=== PATIENT | female | born 1980 | race Caucasian/White ===

== ENCOUNTER 2025-08-13 15:25 | Inpatient (IN) ==
--- NOTE | 2025-08-13 16:28 | Emergency Department Note ---
History of Present Illness General Chief complaint: Referred by Doctor Stated complaint: FEVER, ABD PAIN, ABNORMAL LABS Time Seen by Provider: 08/13/25 16:16 History of Present Illness Provider complaint: Fever nausea vomiting Maximum Pain Intensity: 0 44-year-old female with history of colon cancer on chemotherapy through [facility] oncology Dr. Horowitz presents emergency department for fever nausea vomiting. Patient reports she has been having fever increased nausea and vomiting. No hematemesis coffee-ground emesis or bilious vomiting. Patient reports abdominal pain. She reports that he did blood work at Dr. Horowitz's office and her blood work was off so she was referred to the emergency department. Patient also states that her oncologist wanted her to give a stool sample. Patient reports no chest pain or difficulty breathing. Home Medications Medication Instructions Recorded Confirmed Type clindamycin phosphate 1 % topical 1 applic topical DIRECTED PRN 03/12/25 08/13/25 History gel NEEDED duloxetine 60 mg capsule,delayed 60 mg PO QAM 03/12/25 08/13/25 History release gabapentin 100 mg capsule 200 mg PO BID 03/12/25 08/13/25 History linagliptin 5 mg tablet (Tradjenta) 5 mg PO QAM 03/12/25 08/13/25 History losartan 100 mg tablet 100 mg PO QAM 03/12/25 08/13/25 History lurasidone 40 mg tablet (Latuda) 40 mg PO QDD 03/12/25 08/13/25 History pioglitazone 30 mg tablet (Actos) 30 mg PO QAM 03/12/25 08/13/25 History potassium chloride 20 mEq 20 meq PO BID 03/12/25 08/13/25 History tablet,extended release(part/cryst) ondansetron 4 mg disintegrating 4 mg PO BID PRN nausea and 03/19/25 08/13/25 Rx tablet vomiting #20 tabs acetaminophen 500 mg tablet 500 mg PO Q6H PRN Pain 03/28/25 08/13/25 History fluticasone propionate 50 2 spray intranasal BID PRN 03/28/25 08/13/25 History mcg/actuation nasal allergies spray,suspension pantoprazole 40 mg tablet,delayed 40 mg PO QAM 03/28/25 08/13/25 History release metformin 500 mg tablet 500 mg PO BID 05/15/25 08/13/25 History tizanidine 2 mg tablet 2 mg PO Q8H PRN Spasms 05/15/25 08/13/25 History Magic Swizzle 15 ml mucous membrane TID PRN 08/13/25 08/13/25 History NEEDED PER PT atorvastatin 20 mg tablet 20 mg PO DAILY 08/13/25 08/13/25 History buspirone 30 mg tablet 30 mg PO BID 08/13/25 08/13/25 History fluconazole 100 mg tablet 100 mg PO DAILY 08/13/25 08/13/25 History fluorouracil 5 gram/100 mL 5 g IV .[id number] 08/13/25 08/13/25 History intravenous solution lidocaine-prilocaine 2.5 %-2.5 % 1 applic topical DIRECTED PRN 08/13/25 08/13/25 History topical cream PORT ACCESS magnesium glycinate 100 mg (as 100 mg PO BID 08/13/25 08/13/25 History glycinate) tablet ceptgiyv-ojmo-bjep 8 mg-folic 400 1 tab PO DAILY 08/13/25 08/13/25 History mcg-K 50 mcg-lutein 300 mcg tablet (Centrum Silver Women) nystatin-triamcinolone 100,000 1 applic topical BID PRN NEEDED 08/13/25 08/13/25 History unit/g-0.1 % topical cream omeprazole 20 mg capsule,delayed 20 mg PO BID 08/13/25 08/13/25 History release ondansetron HCl 8 mg tablet 8 mg PO Q8H PRN NAUSEA/VOMITING 08/13/25 08/13/25 History Allergies Allergy/AdvReac Type Severity Reaction Status Date / Time lisinopril AdvReac Intermediate Cough Verified 08/13/25 18:19 Past Med/Surg History Problem List (Updated 08/13/25 @ 20:08 by Himanshu Arciniega MD) Colitis Hypomagnesemia (Acute) Hypokalemia (Acute) Febrile neutropenia Neoplasm of transverse colon Medical History (Updated 08/13/25 @ 20:08 by Himanshu Arciniega MD) Malnutrition of moderate degree History of biliary stent insertion History of recent hospitalization [facility] 05/06-05/10/25; s/p subtotal colectomy with ileo-descending anastomosis Weight loss, unintentional 25lbs over past few months per 04/2025 hospital admission Obesity Colon cancer recent dx; s/p s/p subtotal colectomy with ileo-descending anastomosis 05/06 History of COVID-2023: mild symptoms - no hospitalization. resolved. ADD (attention deficit disorder) On anticoagulant therapy Lovenox daily s/p colon resection 05/13/25 to stop 06/03/25 Diabetes mellitus, type 2 NIDDM Kidney stone ?? possible incidental finding on u/s -- no current issues. Osteoarthritis Fibromyalgia History of endometriosis Depression with anxiety Pancreatic cyst GERD (gastroesophageal reflux disease) Hx of sepsis (02/2025) treated at [facility] Sleep apnea non compliant with cpap Biliary drain displacement (03/14/25) had lap talha at [facility] 02/22/25- presented to [facility] - had biloma- had drain placed on 03/14/25 and removed after discharge from [facility] Hypothyroidism Dyslipidemia Hypertension Bipolar disorder ADHD Surgical History History of laparoscopy (1996) for the endometriosis History of colon resection (05/06/25) [facility] : laparoscopic hand assisted subtotal colectomy with ileo- descending anastamosis Hx of colonoscopy colonoscopy with colon stent Hx of endoscopic retrograde cholangiopancreatography (03/14/25) S/P cholecystectomy (02/22/25) [facility], operated by [facility] Family History Other No family history of adverse response to anesthesia Social History Smoking Status: Current every day smoker Tobacco Type: Cigarettes Cigarettes Per Day: 5-10 cigs per day (advised on policy); Second Hand Exposure: No; Do You Dip or Chew Tobacco: No; Hx Alcohol Use: Yes Alcohol type: beer Hx Substance Use: Yes Last Used Substance Other:: 02/17/25 (no routine use, has not used since) Preferred Language: Beninese Communication Ability: Effective Rn Bsn Required: No Beliefs That Will Affect Care: None Current Living Situation: Family Current Living Situation Comment: lives with children Feels Safe at Home: Yes Assistive Devices: Glasses Physical Exam Vital Signs Vital Signs - 24 hr 08/13/25 15:39 08/13/25 17:00 08/13/25 17:06 Temperature 36.5 C Temperature Source Temporal Artery Scan Pulse Rate 116 H 104 H Pulse Rate [Finger] 103 H Respiratory Rate 18 20 Respiratory Effort / Characteristics Non-Labored Spontaneous Respiratory Depth Normal Respiratory Pattern Regular Blood Pressure 120/81 Blood Pressure [Right Arm] 114/70 Blood Pressure Mean 94 Blood Pressure Mean [Right Arm] 84 Pulse Oximetry 98 98 Oxygen Delivery Method Room Air Room Air Sepsis Recent Fever Within 48 Hours No Sepsis New/Unexplained Change in Mental Status N/A Sepsis Action Taken by Nursing No Action Required 08/13/25 19:00 Temperature Temperature Source Pulse Rate Pulse Rate [Finger] 99 H Respiratory Rate 18 Respiratory Effort / Characteristics Respiratory Depth Respiratory Pattern Blood Pressure Blood Pressure [Right Arm] 105/74 Blood Pressure Mean Blood Pressure Mean [Right Arm] 84 Pulse Oximetry 97 Oxygen Delivery Method Room Air Sepsis Recent Fever Within 48 Hours Sepsis New/Unexplained Change in Mental Status Sepsis Action Taken by Nursing Physical Exam GENERAL: oriented to person, place, and time. appears well-developed and well- nourished. She does not appear distressed. HENT: Exam performed. -Head: Normocephalic and atraumatic. -Right Ear: External ear normal. No mastoid erythema -Left Ear: External ear normal. No mastoid erythema -Mouth/Throat: The oropharynx is clear and moist. No trismus in the jaw. No dental abscesses or uvula swelling. No oropharyngeal exudate or tonsillar abscesses. EYES: Conjunctivae and EOM are normal.Right eye exhibits no discharge. Left eye exhibits no discharge. No scleral icterus. NECK: Normal range of motion. Neck supple. No JVD present. No tracheal deviation and normal range of motion present. CV: Tachycardic rate, regular rhythm, normal heart sounds and intact distal pulses. There is no peripheral edema. Palpable radial pulses bue. PULM/CHEST: Effort normal and breath sounds normal. No respiratory distress. No stridor. no wheezes.no rales. -Chest Wall: no tenderness to palpation ABD: The abdomen is soft. Bowel sounds are normal. no distension. No mass is present. There is no tenderness. There is no rebound, no guarding, no Flores's sign and no tenderness at McBurney's point. Rovsig negative MUSC/SKEL: Normal range of motion. There is no peripheral edema, tenderness or deformity. NEURO: Motor and sensation grossly intact. SKIN: Skin is warm and dry. not diaphoretic. PSYCH: normal mood and affect. Behavior is normal. Judgment and thought content normal. Course Course 1616: The patient was evaluated in room B7. A complete history and physical exam was performed Cardiac monitoring: An order was placed for continuous cardiac monitoring. The monitor shows a rate of 80 with sinus rhythm interpreted by 1800: Vital signs stable. Labs show white blood cell count 3.82 hemoglobin 11.5 neutrophil 0.81 INR 1.2 sodium 130 potassium 2.8 magnesium 0.9. Imaging is unremarkable. [facility] Electrolyte repletion began in the emergency department. Administered Medications Magnesium Sulfate/Dextrose (Magnesium Sulfate / D5w) 1 gm in 100 mls @ 50 mls/hr IV Q2H FRANKIE Stop: 08/13/25 23:29 Last Admin: 08/13/25 19:53 Dose: 50 mls/hr Potassium Chloride (K Cornelius / Wtr) 10 meq in 100 mls @ 100 mls/hr IV Q1H FRANKIE Stop: 08/13/25 22:29 Last Admin: 08/13/25 19:44 Dose: 100 mls/hr Documented By: Infusion: 08/13/25 19:41 Dose: Infused Documented By: Admin: 08/13/25 18:41 Dose: 100 mls/hr Documented By: KATHRYN Discontinued Medications Sodium Chloride (Nss) 1,000 mls @ 999 mls/hr IV .Q1H1M STA Stop: 08/13/25 16:52 Last Infusion: 08/13/25 18:14 Dose: Infused Documented By: Admin: 08/13/25 16:56 Dose: 999 mls/hr Documented By: KATHRYN Magnesium Sulfate/Dextrose (Magnesium Sulfate / D5w) 1 gm in 100 mls @ 100 mls/hr IV Q1H FRANKIE Stop: 08/13/25 19:15 Last Infusion: 08/13/25 19:45 Dose: Infused Documented By: Admin: 08/13/25 18:23 Dose: 100 mls/hr Documented By: Infusion: 08/13/25 18:23 Dose: Infused Documented By: Admin: 08/13/25 17:28 Dose: 100 mls/hr Documented By: KATHRYN Ioversol (Optiray 320 100ml) 92 ml IV ONCE ONE Stop: 08/13/25 16:51 Last Admin: 08/13/25 16:50 Dose: 92 ml Documented By: THELMA Medical Decision Making Laboratory Data Attestation: I reviewed the patient's lab results. 08/13/25 Unknown 08/13/25 Unknown Lab Results 08/13/25 08/13/25 08/13/25 Range/Units 16:30 16:34 Unknown WBC 3.82 L (4.8-10.8) K/ul RBC 4.05 L (4.20-5.40) M/uL Hgb 11.5 L (12.0-16.0) g/dl POC Hgb 11.9 L (12.0-16.0) g/dl Hct 33.9 L (37.0-47.0) % POC Hct 35 L (37-47) % MCV 83.7 (80.0-100.0) fL MCH 28.4 (25.0-34.0) pg MCHC 33.9 (32.0-36.0) g/dL RDW Std Deviation 43.6 (36.4-46.3) fL RDW Coeff of Adi 14.6 H (11.5-14.5) % Plt Count 173 (130-400) K/uL MPV 10.5 (9.4-12.4) fL Immature Gran % (Auto) 2.1 % Neut % (Auto) 21.2 % Lymph % (Auto) 44.8 % [place] % (Auto) 30.6 % Eos % (Auto) 0.8 % Baso % (Auto) 0.5 % Neut # (Auto) 0.81 L* (1.40-6.50) K/uL Lymph # (Auto) 1.71 (1.20-3.40) K/uL [place] # (Auto) 1.17 H (0.11-0.59) K/uL Eos # (Auto) 0.03 (0.00-0.50) K/uL Baso # (Auto) 0.02 (0.00-0.20) K/uL Immature Gran # (Auto) 0.08 (0.01-0.20) K/uL Absolute Nucleated RBC 0.02 (0.00-0.12) K/uL Nucleated RBC % (auto) 0.5 % PT 12.4 H (9.0-12.0) Seconds INR 1.2 H (0.9-1.1) APTT 27 (21-31) Seconds PTT Ratio 1.0 POC Sodium 130 L (135-144) mmol/L Sodium 130 L (136-145) mmol/L POC Potassium 2.8 L (3.3-5.0) mmol/L Potassium 2.8 L (3.5-5.1) mmol/L POC Chloride 94 L (101-112) mmol/L Chloride 95 L (98-107) mmol/L Carbon Dioxide 22 (21-32) mmol/L POC Total CO2 23 L (24-31) mmol/L Anion Gap 13 H (3-11) POC Anion Gap 16.0 (16-25) mmol/L POC BUN < 3 L (7-18) mg/dl BUN 3 L (6-23) mg/dl Creatinine 0.48 L (0.6-1.2) mg/dl POC Creatinine 0.4 L (0.6-1.3) mg/dl Est Cr Clr Drug Dosing 166.7 ml/min eGFR 118.96 BUN/Creatinine Ratio 6.3 L (10-20) Glucose 214 H (70-99(Fasting)) mg/dl POC Glucose (other) 227 H (70-99) mg/dl Lactate 1.4 (0.4-2.0) mmol/L Calcium 8.7 (8.6-10.3) mg/dl POC Ioniz Calcium Ata 1.11 L (1.12-1.32) mmol/l Phosphorus 2.8 (2.5-4.9) mg/dl Magnesium 0.9 L* (1.7-2.4) mg/dl Total Bilirubin 0.4 (0.2-1.0) mg/dl AST 13 (13-39) U/L ALT 14 (7-52) U/L Alkaline Phosphatase 117 H (34-104) U/L Total Protein 6.8 (6.0-8.3) gm/dl Albumin 3.4 (3.4-5.0) gm/dl Globulin 3.4 (2.5-4.0) gm/dl Albumin/Globulin Ratio 1.0 (0.9-2) Lipase 16 (11-82) U/L TSH 2.841 (0.300-4.500) uIu/ml HCG, Qual Negative (Negative) Urine Color Yellow Urine Appearance Clear (Clear) Urine pH 7.0 (4.5-7.5) Ur Specific Whitney 1.016 (1.000-1.030) Urine Protein Negative (Negative) Urine Glucose (UA) Negative (Negative) Urine Ketones Negative (Negative) Urine Blood Negative (Negative) Urine Nitrite Negative (Negative) Urine Bilirubin Negative (Negative) Urine Urobilinogen Negative (Negative) Ur Leukocyte Esterase Negative (Negative) Urine Comment Imaging Data Radiologist's Impression: Abdomen/Pelvis CT 08/13/25 15:53 Clinical History: Abdominal pain Technique: Axial computed tomography images were obtained of the abdomen and pelvis after the administration of intravenous contrast. Comparison is made to the prior CT dated 03/28/2025. Findings: The liver is overall of normal size, attenuation, and contour with no sign of cirrhosis or significant fatty infiltration. No liver mass lesion is seen. The portal vein is patent. The gallbladder has been removed. No bile duct dilatation is noted. The spleen is of normal size. No focal splenic lesion is evident. Again seen is a 1.3 cm septated cyst in the pancreatic tail. The pancreas otherwise appears normal with no sign of acute or chronic pancreatitis and no mass lesion noted. The pancreatic duct is of normal caliber. The adrenal glands appear unremarkable. No definite renal or proximal ureteral calculi are seen on this contrast-enhanced study. There is no hydronephrosis or perinephric stranding. No renal mass lesion is identified. The aorta is of normal caliber. No abdominal adenopathy is seen. There is prominence of the gastric wall that could be due to incomplete distention. There is no sign of small bowel obstruction. There has been interval resection of the previously seen transverse colon mass. There is apparent mild wall thickening of the ileum with adjacent mesenteric edema. No free intraperitoneal fluid or air is identified. No distal ureteral or bladder calculi are seen. The bladder is decompressed. The iliac arteries are of normal caliber. No pelvic adenopathy is noted. The lungs bases appear clear. Mild thoracolumbar degenerative disc disease is seen. There is bilateral hip osteoarthritis. No fracture is identified. No focal osseous lesion is seen Impression: 1. Apparent small bowel wall thickening, which may be due to infectious enteritis or inflammatory bowel disease 2. No definite change in a cystic lesion in the pancreatic tail, likely benign but indeterminate in nature 3. Prominence of the gastric wall that could be due to the decompressed state. Inflammatory gastritis or other pathology cannot be occluded ACT 112: Positive. There are findings on this exam that require communication between the performing entity and the patient following Patient Test Result Information Act ([place] ACT 112) guidelines. Electronically signed by Mina Bishop 08-13-2025 5:43 PM Chest X-Ray 08/13/25 16:23 Chest radiograph, one view History: Vomiting Comparison: None Findings: Single AP view of the chest performed. No focal consolidation or pleural effusion. No pneumothorax. Right chest wall port with catheter tip at the lowerPC. The cardiomediastinal silhouette is within normal limits. Normal pulmonary vascularity. No evidence for lymphadenopathy. No visualized bony or soft tissue abnormality. Impression: Normal chest radiograph Electronically signed by Silvano Bocanegra 08-13-2025 4:49 PM ECG Data Attestation: I personally reviewed and interpreted this ECG as follows: Rate (beats per minute): 106 Rhythm: + sinus tachycardia ECG Intervals/blocks: + Normal QRS, + Normal MN and + Normal QT-c ECG ST segments: + Normal ST segments MDM Narrative 1616: The patient was evaluated in room B7. A complete history and physical exam was performed Cardiac monitoring: An order was placed for continuous cardiac monitoring. The monitor shows a rate of 80 with sinus rhythm interpreted by 1800: Vital signs stable. Labs show white blood cell count 3.82 hemoglobin 11.5 neutrophil 0.81 INR 1.2 sodium 130 potassium 2.8 magnesium 0.9. Imaging is unremarkable. [facility] Electrolyte repletion began in the emergency department. Impression & Plan Hypokalemia, Hypomagnesemia Discharge Plan Visit Data Chief Complaint: Referred by Doctor Stated Complaint: FEVER, ABD PAIN, ABNORMAL LABS ED Provider: Himanshu Arciniega Discharge Problem: Hypokalemia, Hypomagnesemia Patient Disposition: Admitted As Inpatient Condition: Fair Forms Stand Alone Forms: My [facility] [employer] Prescriptions Prescriptions: No Action fluticasone propionate 50 mcg/actuation spray,suspension 2 spray INTRANASAL BID PRN (Reason: allergies) pantoprazole 40 mg tablet,delayed release (DR/EC) 40 mg PO QAM acetaminophen 500 mg Tablet 500 mg PO Q6H PRN (Reason: Pain) metformin 500 mg Tablet 500 mg PO BID tizanidine 2 mg Tablet 2 mg PO Q8H PRN (Reason: Spasms) fluconazole 100 mg Tablet 100 mg PO DAILY ondansetron HCl [Zofran] 8 mg Tablet 8 mg PO Q8H PRN (Reason: NAUSEA/VOMITING) lidocaine-prilocaine 2.5-2.5 % Cream 1 applic topical DIRECTED PRN (Reason: PORT ACCESS) Rx Instructions: apply to skin over mediport and cover 1 hr prior to accessing buspirone 30 mg tablet 30 mg PO BID omeprazole 20 mg Capsule,Delayed Release(Dr/Ec) 20 mg PO BID fluorouracil 5 gram/100 mL Solution 5 g IV .[id number] Rx Instructions: ADMINISTER 5,000 MG AT 3ML/HR OVER 46 HOURS IV Q 14 DAYS. magnesium glycinate 100 mg Tablet 100 mg PO BID Rx Instructions: NEW ORDER 08/13/25, NOT STARTED YET Centrum Silver Women 8 mg iron-400 mcg-50 mcg Tablet 1 tab PO DAILY Magic Swizzle 15 ml mucous membrane TID PRN (Reason: NEEDED PER PT) Rx Instructions: swish and spit TID atorvastatin 20 mg tablet 20 mg PO DAILY nystatin-triamcinolone [Mycolog II] 100,000-0.1 unit/g-% Cream 1 applic TOPICAL BID PRN (Reason: NEEDED) potassium chloride 20 mEq tablet,ER particles/crystals 20 meq PO BID clindamycin phosphate 1 % gel 1 applic TOPICAL DIRECTED PRN (Reason: NEEDED) Rx Instructions: PRN under breasts and groin gabapentin 100 mg capsule 200 mg PO BID pioglitazone [Actos] 30 mg tablet 30 mg PO QAM losartan 100 mg tablet 100 mg PO QAM lurasidone [Latuda] 40 mg tablet 40 mg PO QDD Rx Instructions: MUST BE TAKEN WITH AT LEAST 350 [employer] MEAL Tradjenta 5 mg tablet 5 mg PO QAM duloxetine 60 mg capsule,delayed release(DR/EC) 60 mg PO QAM ondansetron 4 mg tablet,disintegrating 4 mg PO BID PRN (Reason: nausea and vomiting) Qty: 20 0RF Referrals Referrals: Jermaine Mancilla MD [Primary Care Provider] -
[2025-08-13 16:33] LABS: Hematocrit (blood only) 33.9 % (37.0-47.0); Hemoglobin 11.5 g/dl (12.0-16.0); Mean Corpuscular Hemoglobin 28.4 pg (25.0-34.0); Mean Corpuscular Volume 83.7 fL (80.0-100.0); Platelet Count 173 K/uL (130-400); RDW Standard Deviation 43.6 fL (36.4-46.3); Red Blood Count 4.05 M/uL (4.20-5.40); White Blood Count 3.82 K/ul (4.8-10.8)
[2025-08-13 16:46] LABS: Pregnancy Test, Serum Negative (Negative)
[2025-08-13] MEDS: OPTIRAY 320 100ml IV ONE (16:50)
--- NOTE | 2025-08-13 16:51 | XRay Report ---
Chest radiograph, one view History: Vomiting Comparison: None Findings: Single AP view of the chest performed. No focal consolidation or pleural effusion. No pneumothorax. Right chest wall port with catheter tip at the lowerPC. The cardiomediastinal silhouette is within normal limits. Normal pulmonary vascularity. No evidence for lymphadenopathy. No visualized bony or soft tissue abnormality. Impression: Normal chest radiograph Electronically signed by Silvano Bocanegra 08-13-2025 4:49 PM
[2025-08-13 16:54] LABS: Anion Gap 13.0 (3-11); Blood Urea Nitrogen 3.0 mg/dl (6-23); Calcium 8.7 mg/dl (8.6-10.3); Carbon Dioxide 22.0 mmol/L (21-32); Chloride 95.0 mmol/L (98-107); Creatinine Clr Calc Pharmacy 166.7 ml/min; Glucose 214.0 mg/dl (70-99(Fasting)); Potassium 2.8 mmol/L (3.5-5.1); Sodium 130.0 mmol/L (136-145)
[2025-08-13] MEDS: SODIUM CHLORIDE 0.9% 1,000 ML IV STA (16:56)
[2025-08-13 16:58] LABS: Alanine Aminotransferase 14.0 U/L (7-52); Albumin Globulin Ratio 1.0 (0.9-2); Albumin Level 3.4 gm/dl (3.4-5.0); Alkaline Phosphatase 117.0 U/L (34-104); Bilirubin,Total 0.4 mg/dl (0.2-1.0); Globulin 3.4 gm/dl (2.5-4.0); Lipase 16.0 U/L (11-82); Magnesium 0.9 mg/dl (1.7-2.4); Total Protein 6.8 gm/dl (6.0-8.3)
[2025-08-13 17:02] LABS: INR 1.2 (0.9-1.1); Prothrombin Time 12.4 Seconds (9.0-12.0)
[2025-08-13 17:08] LABS: Thyroid Stimulating Hormone 2.841 uIu/ml (0.300-4.500)
[2025-08-13 17:09] LABS: Partial Thromboplastin Time 27 Seconds (21-31)
[2025-08-13 17:26] LABS: Immature Granulocytes # (auto) 0.08 K/uL (0.01-0.20); Immature Granulocytes % (auto) 2.1 %
[2025-08-13] MEDS: MAGNESIUM SULFATE / D5W 1 GM/100 ML BAG IV SCH ×3 (17:28→23:41)
--- NOTE | 2025-08-13 17:43 | CT Scan Report ---
Clinical History: Abdominal pain Technique: Axial computed tomography images were obtained of the abdomen and pelvis after the administration of intravenous contrast. Comparison is made to the prior CT dated 03/28/2025. Findings: The liver is overall of normal size, attenuation, and contour with no sign of cirrhosis or significant fatty infiltration. No liver mass lesion is seen. The portal vein is patent. The gallbladder has been removed. No bile duct dilatation is noted. The spleen is of normal size. No focal splenic lesion is evident. Again seen is a 1.3 cm septated cyst in the pancreatic tail. The pancreas otherwise appears normal with no sign of acute or chronic pancreatitis and no mass lesion noted. The pancreatic duct is of normal caliber. The adrenal glands appear unremarkable. No definite renal or proximal ureteral calculi are seen on this contrast-enhanced study. There is no hydronephrosis or perinephric stranding. No renal mass lesion is identified. The aorta is of normal caliber. No abdominal adenopathy is seen. There is prominence of the gastric wall that could be due to incomplete distention. There is no sign of small bowel obstruction. There has been interval resection of the previously seen transverse colon mass. There is apparent mild wall thickening of the ileum with adjacent mesenteric edema. No free intraperitoneal fluid or air is identified. No distal ureteral or bladder calculi are seen. The bladder is decompressed. The iliac arteries are of normal caliber. No pelvic adenopathy is noted. The lungs bases appear clear. Mild thoracolumbar degenerative disc disease is seen. There is bilateral hip osteoarthritis. No fracture is identified. No focal osseous lesion is seen Impression: 1. Apparent small bowel wall thickening, which may be due to infectious enteritis or inflammatory bowel disease 2. No definite change in a cystic lesion in the pancreatic tail, likely benign but indeterminate in nature 3. Prominence of the gastric wall that could be due to the decompressed state. Inflammatory gastritis or other pathology cannot be occluded ACT 112: Positive. There are findings on this exam that require communication between the performing entity and the patient following Patient Test Result Information Act ([place] ACT 112) guidelines. Electronically signed by Mina Bishop 08-13-2025 5:43 PM
[2025-08-13 18:00] LABS: Appearance Urine Clear (Clear); Glucose Urine UA Negative (Negative)
--- NOTE | 2025-08-13 18:26 | History & Physical Report ---
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 Horowitz, malnutrition of moderate degree, hypertension, type 2 diabetes, hypothyroidism, dyslipidemia, mood disorder, tobacco use and other medical problems listed below who was sent in from hematology oncology clinic due to abdominal pain, diarrhea and electrolyte abnormalities for further evaluation and treatment. -Febrile at home, HR 116, WBC <4 with colitis on imaging, meeting sepsis criteria -CT abd/pelvis with apparent small bowel wall thickening, which may be due to infectious enteritis or inflammatory bowel disease -patient with borderline febrile neutropenia (0.8 on CBC) with recent chemotherapy -this is likely a chemotherapy induced acute diarrheal illness Plan: -start cefepime in setting of febrile neutropenia -check stool biofire, c. diff -Continue IV fluids -clear liquid diet -zofran for nausea/vomiting, can start reglan if needed -check blood cultures (3) Neoplasm of transverse colon: Plan: -Follows with Dr. Horowitz, undergoing chemo with Fluorouracil, leucovorin, and oxaliplatin -confusion amongst patient and daughter regarding staging, currative vs. palliative intent, treatment plan which is likely causing worsening symptoms/anxiety -patient having severe dry mouth, dysgeusia, poor appetite as well -mouth exam without white plaques or exudates Plan: -Antiemetics, pain control -encouraged family to discuss case personally with Dr. Horowitz, all questions answered to best of my ability -start artificial saliva before meals -stop buspar (per patient ineffective), start mirtazapine 7.5mg at bedtime for appetite stimulation/anxiety control (discussed with patient risks and benefits, including small risk of serotonin syndrome, patient in agreement) -start zinc tablets for dysgeusia (4) Hypomagnesemia: Plan: -Initial magnesium 0.9 in setting of diarrhea as above -Given 2gm Mag in ED, ordered 4 additional grams with lab recheck at 2200 (5) Hypokalemia: Plan: -K 2.8 in setting of diarrhea -40 meq KCl ordered in ED, along with add'l 20 meq in IV fluids and 40 PO -Repeat BMP at 2200 (6) Hypertension: Plan: -continue losartan (7) Dyslipidemia: Plan: -continue atorvastatin (8) Hypothyroidism: (9) Diabetes mellitus, type 2: Plan: -SSI (10) Fibromyalgia: Plan: -continue duloxetine, lurasidone (11) Depression with anxiety: Plan: -see above (12) Bipolar disorder: (13) Sleep apnea: (14) Malnutrition of moderate degree: Plan: -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 This time includes: history taking, physical examination, medical decision making, counseling, ECG interpretation, imaging interpretation, lab interpretation, orders, and education, excluding time spent in the performance of separately billed services. 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 Horowitz,, malnutrition of moderate degree, hypertension, type 2 diabetes, hypothyroidism, dyslipidemia, mood disorder, tobacco use and other medical problems listed below who was sent in from hematology oncology clinic due to abdominal pain, diarrhea and electrolyte abnormalities for further evaluation and treatment. Patient follows with Dr. Horowitz and is currently undergoing chemotherapy with Fluorouracil, leucovorin, and oxaliplatin. Has had nausea and vomiting during chemo treatment. Also has history of gallbladder removal and large intestine surgery and has diarrhea approximately 5 times a day. In the ED, noted to have colitis and gastritis, neutropenia, Mg of 0.9, K of 2.8, Na of 130, admitted to medicine for further workup. Patient seen and examined at bedside. Daughter present as well. Patient states she has been not feeling well the past few days. Has been having some nausea, vomiting, dizziness, diarrhea, and fever. She states she is very stubborn but feels that she is sicker than normal. Denies SOB or chest pain. States her last treatment was over a week ago. Does all ADLs at home and states she is doing well. Very surprised at her lab abnormalities. States she drinks a lot of water. Patient is ongoing smoker. Very long discussion at bedside regarding patients malignancy, prognosis, and current condition. Daughter and patient express confusion/frustration about the patients malignancy, prognosis, and treatment options. There is some confusion about whether this treatment is for curative intent or palliative intent, what the current state of the malignancy is, and whether she can continue with this regiment. Answered all questions to best of my ability. Allergies Allergy/AdvReac Type Severity Reaction Status Date / Time lisinopril AdvReac Intermediate Cough Verified 08/13/25 18:19 Home Medications Medication Instructions Recorded Confirmed Type clindamycin phosphate 1 % topical 1 applic topical DIRECTED PRN 03/12/25 08/13/25 History gel NEEDED duloxetine 60 mg capsule,delayed 60 mg PO QAM 03/12/25 08/13/25 History release gabapentin 100 mg capsule 200 mg PO BID 03/12/25 08/13/25 History linagliptin 5 mg tablet (Tradjenta) 5 mg PO QAM 03/12/25 08/13/25 History losartan 100 mg tablet 100 mg PO QAM 03/12/25 08/13/25 History lurasidone 40 mg tablet (Latuda) 40 mg PO QDD 03/12/25 08/13/25 History pioglitazone 30 mg tablet (Actos) 30 mg PO QAM 03/12/25 08/13/25 History potassium chloride 20 mEq 20 meq PO BID 03/12/25 08/13/25 History tablet,extended release(part/cryst) ondansetron 4 mg disintegrating 4 mg PO BID PRN nausea and 03/19/25 08/13/25 Rx tablet vomiting #20 tabs acetaminophen 500 mg tablet 500 mg PO Q6H PRN Pain 03/28/25 08/13/25 History fluticasone propionate 50 2 spray intranasal BID PRN 03/28/25 08/13/25 History mcg/actuation nasal allergies spray,suspension pantoprazole 40 mg tablet,delayed 40 mg PO QAM 03/28/25 08/13/25 History release metformin 500 mg tablet 500 mg PO BID 05/15/25 08/13/25 History tizanidine 2 mg tablet 2 mg PO Q8H PRN Spasms 05/15/25 08/13/25 History Magic Swizzle 15 ml mucous membrane TID PRN 08/13/25 08/13/25 History NEEDED PER PT atorvastatin 20 mg tablet 20 mg PO DAILY 08/13/25 08/13/25 History buspirone 30 mg tablet 30 mg PO BID 08/13/25 08/13/25 History fluconazole 100 mg tablet 100 mg PO DAILY 08/13/25 08/13/25 History fluorouracil 5 gram/100 mL 5 g IV .[id number] 08/13/25 08/13/25 History intravenous solution lidocaine-prilocaine 2.5 %-2.5 % 1 applic topical DIRECTED PRN 08/13/25 08/13/25 History topical cream PORT ACCESS magnesium glycinate 100 mg (as 100 mg PO BID 08/13/25 08/13/25 History glycinate) tablet yubjjliu-wqso-hblu 8 mg-folic 400 1 tab PO DAILY 08/13/25 08/13/25 History mcg-K 50 mcg-lutein 300 mcg tablet (Centrum Silver Women) nystatin-triamcinolone 100,000 1 applic topical BID PRN NEEDED 08/13/25 08/13/25 History unit/g-0.1 % topical cream omeprazole 20 mg capsule,delayed 20 mg PO BID 08/13/25 08/13/25 History release ondansetron HCl 8 mg tablet 8 mg PO Q8H PRN NAUSEA/VOMITING 08/13/25 08/13/25 History Past Med/Surg History Problem List (Updated 08/13/25 @ 20:08 by Himanshu Arciniega MD) Colitis Hypomagnesemia (Acute) Hypokalemia (Acute) Febrile neutropenia Neoplasm of transverse colon Medical History (Updated 08/13/25 @ 20:08 by Himanshu Arciniega MD) Malnutrition of moderate degree History of biliary stent insertion History of recent [facility]; s/p subtotal colectomy with ileo-descending anastomosis Weight loss, unintentional 25lbs over past few months per 04/2025 hospital admission Obesity Colon cancer recent dx; s/p s/p subtotal colectomy with ileo-descending anastomosis 05/06 History of COVID-19 2023: mild symptoms - no hospitalization. resolved. ADD (attention deficit disorder) On anticoagulant therapy Lovenox daily s/p colon resection 05/13/25 to stop 06/03/25 Diabetes mellitus, type 2 NIDDM Kidney stone ?? possible incidental finding on u/s -- no current issues. Osteoarthritis Fibromyalgia History of endometriosis Depression with anxiety Pancreatic cyst GERD (gastroesophageal reflux disease) Hx of sepsis (02/2025) treated at [facility] Sleep apnea non compliant with cpap Biliary drain displacement (03/14/25) had lap talha at [facility] 02/22/25- presented to [facility] - had biloma- had drain placed on 03/14/25 and removed after discharge from [facility] Hypothyroidism Dyslipidemia Hypertension Bipolar disorder ADHD Surgical History History of laparoscopy (1996) for the endometriosis History of colon resection (05/06/25) [facility] [place] : laparoscopic hand assisted subtotal colectomy with ileo-descen ding anastamosis Hx of colonoscopy colonoscopy with colon stent Hx of endoscopic retrograde cholangiopancreatography (03/14/25) S/P cholecystectomy (02/22/25) 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 External ears normal. No rhinorrhea. Dry mucous membranes. Neck: Supple, full range of motion, no observable masses, No meningeal sign. Lungs: No Respiratory distress. CV: tachycardic, regular rhythm Abdomen: diffuse mild tenderness to palpation worst in epigastric region MSK: No joint swelling, no redness. Skin: No rashes, petechiae, lesions. Normal color per patient. Neuro: Normal Gait, Grossly intact. Psych: Appropriate for situation. Results & Data Results & Data Vital Signs (Past 12 Hours) Vital Signs Temp Pulse Pulse Resp BP BP Pulse Ox 08/13/25 17:06 104 H 08/13/25 17:00 103 H 20 114/70 98 08/13/25 15:39 36.5 C 116 H 18 120/81 98 O2 Del Method 08/13/25 17:06 08/13/25 17:00 Room Air 08/13/25 15:39 Room Air Laboratory Results Short CBC 08/13/25 Range/Units Unknown WBC 3.82 L (4.8-10.8) K/ul Hgb 11.5 L (12.0-16.0) g/dl Hct 33.9 L (37.0-47.0) % Plt Count 173 (130-400) K/uL BMP 08/13/25 Unknown Sodium 130 L Potassium 2.8 L Chloride 95 L Carbon Dioxide 22 BUN 3 L Creatinine 0.48 L Glucose 214 H Calcium 8.7 Liver Function 08/13/25 Range/Units Unknown Total Bilirubin 0.4 (0.2-1.0) mg/dl AST 13 (13-39) U/L ALT 14 (7-52) U/L Alkaline Phosphatase 117 H (34-104) U/L Albumin 3.4 (3.4-5.0) gm/dl Urine 08/13/25 Range/Units Unknown Urine Color Yellow Urine Appearance Clear (Clear) Urine pH 7.0 (4.5-7.5) Ur Specific [place] 1.016 (1.000-1.030) Urine Protein Negative (Negative) Urine Glucose (UA) Negative (Negative) Diagnostic Findings Abdomen/Pelvis CT 08/13/25 15:53 Clinical History: Abdominal pain Technique: Axial computed tomography images were obtained of the abdomen and pelvis after the administration of intravenous contrast. Comparison is made to the prior CT dated 03/28/2025. Findings: The liver is overall of normal size, attenuation, and contour with no sign of cirrhosis or significant fatty infiltration. No liver mass lesion is seen. The portal vein is patent. The gallbladder has been removed. No bile duct dilatation is noted. The spleen is of normal size. No focal splenic lesion is evident. Again seen is a 1.3 cm septated cyst in the pancreatic tail. The pancreas otherwise appears normal with no sign of acute or chronic pancreatitis and no mass lesion noted. The pancreatic duct is of normal caliber. The adrenal glands appear unremarkable. No definite renal or proximal ureteral calculi are seen on this contrast-enhanced study. There is no hydronephrosis or perinephric stranding. No renal mass lesion is identified. The aorta is of normal caliber. No abdominal adenopathy is seen. There is prominence of the gastric wall that could be due to incomplete distention. There is no sign of small bowel obstruction. There has been interval resection of the previously seen transverse colon mass. There is apparent mild wall thickening of the ileum with adjacent mesenteric edema. No free intraperitoneal fluid or air is identified. No distal ureteral or bladder calculi are seen. The bladder is decompressed. The iliac arteries are of normal caliber. No pelvic adenopathy is noted. The lungs bases appear clear. Mild thoracolumbar degenerative disc disease is seen. There is bilateral hip osteoarthritis. No fracture is identified. No focal osseous lesion is seen Impression: 1. Apparent small bowel wall thickening, which may be due to infectious enteritis or inflammatory bowel disease 2. No definite change in a cystic lesion in the pancreatic tail, likely benign but indeterminate in nature 3. Prominence of the gastric wall that could be due to the decompressed state. Inflammatory gastritis or other pathology cannot be occluded ACT 112: Positive. There are findings on this exam that require communication between the performing entity and the patient following Patient Test Result Information Act ([place] ACT 112) guidelines. Electronically signed by Mina Bishop 08-13-2025 5:43 PM Chest X-Ray 08/13/25 16:23 Chest radiograph, one view History: Vomiting Comparison: None Findings: Single AP view of the chest performed. No focal consolidation or pleural effusion. No pneumothorax. Right chest wall port with catheter tip at the lowerPC. The cardiomediastinal silhouette is within normal limits. Normal pulmonary vascularity. No evidence for lymphadenopathy. No visualized bony or soft tissue abnormality. Impression: Normal chest radiograph Electronically signed by Silvano Bocanegra 08-13-2025 4:49 PM Code Status & VTE Plan Code Status -full code, discussed with patient and family at length (15) Sepsis Sepsis acute organ dysfunction status: unspecified Sepsis type: sepsis due to unspecified organism Qualified Code(s): A41.9 - Sepsis, unspecified organism
[2025-08-13] MEDS: POTASSIUM CHLORIDE / WTR 10 MEQ/100 ML PLCT IV SCH (18:41)
[2025-08-13] MEDS ORDERED: GLUCAGON FOR INJ 1 MG VIAL SQ PRN (19:41)
[2025-08-13] MEDS ORDERED: GLUCOSE 40% GEL 15 GM TUBE PO PRN (19:41)
[2025-08-13] MEDS ORDERED: DEXTROSE 50% 50 ML SYRINGE IV PRN (19:41)
[2025-08-13] MEDS ORDERED: CARBOHYDRATES FOR HYPOGLYCEMIA PO PRN (19:41)
[2025-08-13] MEDS ORDERED: GLUCOSE 10 TAB/TUBE PO PRN (19:41)
[2025-08-13] MEDS: POTASSIUM CHLORIDE 20 MEQ/15 ML UDC PO STA (20:18)
[2025-08-13 20:34] LABS: Cdiff Toxin B Gene (2yr or >) Negative Cdiff Gene (Neg)
[2025-08-13] MEDS ORDERED: ONDANSETRON INJ 2 MG/ML 2 ML VIAL IV PRN (20:54)
[2025-08-13 21:04] LABS: Adenovirus F 40/41 PCR Not Detected (NotDetected); Campylobacter PCR Not Detected (NotDetected); Enteroaggregative E.coli(EAEC) Not Detected (NotDetected); Shiga-like Toxin E.coli (STEC) Not Detected (NotDetected); Vibrio species PCR Not Detected (NotDetected)
[2025-08-13] MEDS ORDERED: FLUTICASONE PROPIONATE NA SPR 16 GM BTL NAE PRN (21:25)
[2025-08-13] MEDS ORDERED: LIDOCAINE/PRILOCAINE 2.5% EA CRM EXT PRN (21:25)
[2025-08-13] MEDS ORDERED: NYSTATIN/TRIAMCIN CR 15 GM TUBE EXT PRN (21:25)
[2025-08-13] MEDS ORDERED: NON-FORMULARY MEDICATION (Magnesium Glycinate 100 mg Tablet) PO SCH (21:25)
[2025-08-13] MEDS ORDERED: FIRST - Mouthwash BLM 119 ML PO PRN (21:30)
[2025-08-13] MEDS: NSS + 20MEQ KCL 20 MEQ/1,000 ML BAG IV SCH (22:13)
[2025-08-13] MEDS: INSULIN ASPART PER UNIT CHARGE SC SCH (22:15)
[2025-08-13] MEDS: GABAPENTIN 100 MG CAP PO SCH (22:16)
[2025-08-13] MEDS: CEFEPIME 2000MG 2,000 MG/20 ML SYR IV SCH (22:16)
[2025-08-13] MEDS: MIRTAZAPINE TAB 15 MG TAB PO SCH (22:16)
[2025-08-13] MEDS: ACETAMINOPHEN 325 MG TAB PO PRN (22:30)
[2025-08-13] MEDS: LACTATED RINGER'S 1,000 ML IV SCH (22:51)
[2025-08-13 23:36] LABS: Anion Gap 8.0 (3-11); Blood Urea Nitrogen 3.0 mg/dl (6-23); Calcium 7.8 mg/dl (8.6-10.3); Carbon Dioxide 24.0 mmol/L (21-32); Chloride 100.0 mmol/L (98-107); Creatinine Clr Calc Pharmacy 182.8 ml/min; Glucose 226.0 mg/dl (70-99(Fasting)); Magnesium 1.9 mg/dl (1.7-2.4); Potassium 3.1 mmol/L (3.5-5.1); Sodium 132.0 mmol/L (136-145)
[2025-08-14 07:13] LABS: Alanine Aminotransferase 11.0 U/L (7-52); Albumin Globulin Ratio 0.8 (0.9-2); Albumin Level 2.5 gm/dl (3.4-5.0); Alkaline Phosphatase 104.0 U/L (34-104); Anion Gap 6.0 (3-11); Bilirubin,Total 0.3 mg/dl (0.2-1.0); Blood Urea Nitrogen 3.0 mg/dl (6-23); Calcium 7.9 mg/dl (8.6-10.3); Carbon Dioxide 25.0 mmol/L (21-32); Chloride 106.0 mmol/L (98-107); Creatinine Clr Calc Pharmacy 236.4 ml/min; Globulin 3.2 gm/dl (2.5-4.0); Glucose 183.0 mg/dl (70-99(Fasting)); Magnesium 2.1 mg/dl (1.7-2.4); Potassium 3.3 mmol/L (3.5-5.1); Sodium 137.0 mmol/L (136-145); Total Protein 5.7 gm/dl (6.0-8.3)
[2025-08-14] MEDS: MAGNESIUM SULFATE / D5W 1 GM/100 ML BAG IV SCH (07:14)
[2025-08-14] MEDS: POTASSIUM CHLORIDE CRTAB 20 MEQ TABCR PO STA (07:14)
[2025-08-14] MEDS: POTASSIUM CHLORIDE / WTR 10 MEQ/100 ML PLCT IV SCH (07:15)
[2025-08-14 07:41] LABS: Hematocrit (blood only) 32.1 % (37.0-47.0); Hemoglobin 10.7 g/dl (12.0-16.0); Mean Corpuscular Hemoglobin 28.5 pg (25.0-34.0); Mean Corpuscular Volume 85.6 fL (80.0-100.0); Platelet Count 161 K/uL (130-400); RDW Standard Deviation 44.7 fL (36.4-46.3); Red Blood Count 3.75 M/uL (4.20-5.40)
[2025-08-14 07:49] LABS: Hemoglobin A1C 8.7 % (4.5-5.6)
[2025-08-14] MEDS: ZINC SULFATE 220 MG CAPSULE PO SCH (08:17)
[2025-08-14] MEDS: POTASSIUM CHLORIDE CRTAB 20 MEQ TABCR PO SCH (08:17)
[2025-08-14] MEDS: LOSARTAN POTASSIUM 50 MG TAB PO SCH (08:18)
[2025-08-14] MEDS: ATORVASTATIN 20 MG TAB PO SCH (08:23)
[2025-08-14] MEDS: FLUCONAZOLE 100 MG TAB PO SCH (08:23)
[2025-08-14] MEDS: CEROVITE ADV FORMULA TAB PO SCH (08:23)
[2025-08-14] MEDS: HEPARIN 100 UNIT/ML 5ML FLUSH FLUSH PRN (08:45)
[2025-08-14 09:07] LABS: White Blood Count 2.62 K/ul (4.8-10.8)
[2025-08-14 09:13] LABS: ALC (manual) 1.57 K/uL (1.2-3.4); ANC (manual) 0.55 K/uL (1.4-6.5); Blast # (manual) 0.03 K/uL (0-0); Polychromasia 1+; Tear Drop Cells Occasional; Toxic Vacuolation 1+
--- NOTE | 2025-08-14 11:26 | Hospitalist Progress Note ---
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 Horowitz, malnutrition of moderate degree, hypertension, type 2 diabetes, hypothyroidism, dyslipidemia, mood disorder, tobacco use and other medical problems listed below who was sent in from hematology oncology clinic due to abdominal pain, diarrhea and electrolyte abnormalities for further evaluation and treatment. -Febrile at home, HR 116, WBC <4 with colitis on imaging, meeting sepsis criteria -CT abd/pelvis with apparent small bowel wall thickening, which may be due to infectious enteritis or inflammatory bowel disease -patient with borderline febrile neutropenia (0.8 on CBC) with recent chemo therapy -this is likely a chemotherapy induced acute diarrheal illness Plan: -start cefepime in setting of febrile neutropenia -check stool biofire, c. diff -Continue IV fluids -clear liquid diet -zofran for nausea/vomiting, can start reglan if needed -check blood cultures 08/14 (+) Norovirus blood culture pending diarrhea improving start soft diet continue IV fluids replace electrolytes ANC trended down to 500s discussed with Oncologist Dr. Chava Horowitz recommend repeat CBC at 2pm (3) Neoplasm of transverse colon: Plan: -Follows with Dr. Horowitz, undergoing chemo with Fluorouracil, leucovorin, and oxaliplatin -confusion amongst patient and daughter regarding staging, currative vs. palliative intent, treatment plan which is likely causing worsening symptoms/anxiety -patient having severe dry mouth, dysgeusia, poor appetite as well -mouth exam without white plaques or exudates Plan: -Antiemetics, pain control -encouraged family to discuss case personally with Dr. Horowitz, all questions answered to best of my ability -start artificial saliva before meals -stop buspar (per patient ineffective), start mirtazapine 7.5mg at bedtime for appetite stimulation/anxiety control (discussed with patient risks and benefits, including small risk of serotonin syndrome, patient in agreement) -start zinc tablets for dysgeusia (4) Hypomagnesemia: Plan: -Initial magnesium 0.9 in setting of diarrhea as above -Given 2gm Mag in ED, ordered 4 additional grams with lab recheck at 2200 resolved (5) Hypokalemia: Plan: -K 2.8 in setting of diarrhea -40 meq KCl ordered in ED, along with add'l 20 meq in IV fluids and 40 PO -Repeat BMP at 2200 improved (6) Hypertension: Plan: -continue losartan (7) Dyslipidemia: Plan: -continue atorvastatin (8) Hypothyroidism: (9) Diabetes mellitus, type 2: Plan: -SSI (10) Fibromyalgia: Plan: -continue duloxetine, lurasidone (11) Depression with anxiety: Plan: -see above (12) Bipolar disorder: (13) Sleep apnea: (14) Malnutrition of moderate degree: 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 This time includes: history taking, physical examination, medical decision making, counseling, ECG interpretation, imaging interpretation, lab interpretation, orders, and education, excluding time spent in the performance of separately billed services. Admission and Anticipated Discharge Date Admission Date: August 13, 2025 Subjective seen resting in bed, sitting up, comfortable states she feels better overall today less abdominal cramping no nausea tolerating clears well had 2 loose stools since yesterday Review of Systems Review of Systems: all noted and negative except for above Physical Exam Physical Exam: General- oriented x 3, not in distress, speaks in sentences with no effort or accessory muscle use Eyes- anicteric Neck- no JVD Lungs- clear breath sounds bilaterally, no rales/wheezes Heart- normal rate, regular rhythm; no murmurs Abdomen- normal bowel sounds, nondistended, soft, nontender Extremities- no pretibial edema, no calf tenderness Neuro- alert, oriented x 3; no gross focal neurologic deficits Skin- warm & dry Results & Data Results & Data Vital Signs (Past 12 Hours) Vital Signs Temp Pulse Pulse Resp BP Pulse Ox O2 Del Method 08/14/25 11:16 36.7 C 102 H 17 127/84 99 Room Air 08/14/25 07:31 37.2 C 111 H 19 138/81 97 Room Air 08/14/25 05:58 107 H 08/14/25 03:53 36.9 C 99 H 16 153/96 H 96 Room Air all noted and reviewed including below (15) Sepsis Sepsis acute organ dysfunction status: unspecified Sepsis type: sepsis due to unspecified organism Qualified Code(s): A41.9 - Sepsis, unspecified organism
[2025-08-14] MEDS: NSS + 20MEQ KCL 20 MEQ/1,000 ML BAG IV SCH (11:33)
[2025-08-14] MEDS: NICOTINE 21 MG/24 HR TDSY TD SCH (14:01)
[2025-08-14 14:50] LABS: Hematocrit (blood only) 31.3 % (37.0-47.0); Hemoglobin 10.5 g/dl (12.0-16.0); Mean Corpuscular Hemoglobin 29.1 pg (25.0-34.0); Mean Corpuscular Volume 86.7 fL (80.0-100.0); Platelet Count 167 K/uL (130-400); RDW Standard Deviation 46.4 fL (36.4-46.3); Red Blood Count 3.61 M/uL (4.20-5.40); White Blood Count 3.51 K/ul (4.8-10.8)
[2025-08-14 16:03] LABS: ALC (manual) 2.14 K/uL (1.2-3.4); ANC (manual) 0.74 K/uL (1.4-6.5); Dohle Bodies 1+; Polychromasia 1+
[2025-08-14] MEDS: LURASIDONE HCL 20 MG TAB PO SCH (17:05)
[2025-08-14] MEDS: MELATONIN 3 MG TAB PO PRN (20:48)
[2025-08-14 22:28] LABS: Anion Gap 7.0 (3-11); Blood Urea Nitrogen 4.0 mg/dl (6-23); Calcium 8.0 mg/dl (8.6-10.3); Carbon Dioxide 20.0 mmol/L (21-32); Chloride 105.0 mmol/L (98-107); Creatinine Clr Calc Pharmacy 188.1 ml/min; Glucose 226.0 mg/dl (70-99(Fasting)); Potassium 3.6 mmol/L (3.5-5.1); Sodium 132.0 mmol/L (136-145)
[2025-08-15 07:00] LABS: Hematocrit (blood only) 31.5 % (37.0-47.0); Hemoglobin 10.5 g/dl (12.0-16.0); Mean Corpuscular Hemoglobin 28.6 pg (25.0-34.0); Mean Corpuscular Volume 85.8 fL (80.0-100.0); Platelet Count 189 K/uL (130-400); RDW Standard Deviation 45.4 fL (36.4-46.3); Red Blood Count 3.67 M/uL (4.20-5.40); White Blood Count 4.35 K/ul (4.8-10.8)
[2025-08-15 07:38] LABS: Alanine Aminotransferase 10.0 U/L (7-52); Albumin Globulin Ratio 0.8 (0.9-2); Albumin Level 2.5 gm/dl (3.4-5.0); Alkaline Phosphatase 99.0 U/L (34-104); Anion Gap 7.0 (3-11); Bilirubin,Total 0.3 mg/dl (0.2-1.0); Blood Urea Nitrogen 2.0 mg/dl (6-23); Calcium 8.3 mg/dl (8.6-10.3); Carbon Dioxide 21.0 mmol/L (21-32); Chloride 106.0 mmol/L (98-107); Creatinine Clr Calc Pharmacy 211.9 ml/min; Globulin 3.3 gm/dl (2.5-4.0); Glucose 191.0 mg/dl (70-99(Fasting)); Potassium 3.8 mmol/L (3.5-5.1); Sodium 134.0 mmol/L (136-145); Total Protein 5.8 gm/dl (6.0-8.3)
[2025-08-15 08:09] VITALS: O2SAT 96
[2025-08-15] MEDS: REMOVE NICODERM PATCH SCH (09:03)
[2025-08-15 11:07] LABS: ALC (manual) 1.31 K/uL (1.2-3.4); ANC (manual) 1.87 K/uL (1.4-6.5); Blast # (manual) 0.04 K/uL (0-0); Polychromasia 1+
[2025-08-15 11:21] VITALS: BP 118/83; PULSE 96; RESP 19; TEMP 98.4
--- NOTE | 2025-08-15 17:42 | Discharge Summary ---
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 Horowitz, malnutrition of moderate degree, hypertension, type 2 diabetes, hypothyroidism, dyslipidemia, mood disorder, tobacco use and other medical problems listed below who was sent in from hematology oncology clinic due to abdominal pain, diarrhea and electrolyte abnormalities for further evaluation and treatment. -Febrile at home, HR 116, WBC <4 with colitis on imaging, meeting sepsis criteria -CT abd/pelvis with apparent small bowel wall thickening, which may be due to infectious enteritis or inflammatory bowel disease -patient with borderline febrile neutropenia (0.8 on CBC) with recent chemotherapy -this is likely a chemotherapy induced acute diarrheal illness Plan: -start cefepime in setting of febrile neutropenia -check stool biofire, c. diff -Continue IV fluids -clear liquid diet -zofran for nausea/vomiting, can start reglan if needed -check blood cultures 08/14 (+) Norovirus blood culture pending diarrhea improving start soft diet continue IV fluids replace electrolytes ANC trended down to 500s discussed with Oncologist Dr. Chava Horowitz recommend repeat CBC at 2pm (3) Neoplasm of transverse colon: -Follows with Dr. Horowitz, undergoing chemo with Fluorouracil, leucovorin, and oxaliplatin -confusion amongst patient and daughter regarding staging, currative vs. palliative intent, treatment plan which is likely causing worsening symptoms/anxiety -patient having severe dry mouth, dysgeusia, poor appetite as well -mouth exam without white plaques or exudates Plan: -Antiemetics, pain control -encouraged family to discuss case personally with Dr. Horowitz, all questions answered to best of my ability -start artificial saliva before meals -stop buspar (per patient ineffective), start mirtazapine 7.5mg at bedtime for appetite stimulation/anxiety control (discussed with patient risks and benefits, including small risk of serotonin syndrome, patient in agreement) -start zinc tablets for dysgeusia (4) Hypomagnesemia: -Initial magnesium 0.9 in setting of diarrhea as above -Given 2gm Mag in ED, ordered 4 additional grams with lab recheck at 2200 resolved (5) Hypokalemia: -K 2.8 in setting of diarrhea -40 meq KCl ordered in ED, along with add'l 20 meq in IV fluids and 40 PO -Repeat BMP at 2200 improved (6) Hypertension: -continue losartan (7) Dyslipidemia: -continue atorvastatin (8) Hypothyroidism: (9) Diabetes mellitus, type 2: -SSI (10) Fibromyalgia: -continue duloxetine, lurasidone (11) Depression with anxiety: -see above (12) Bipolar disorder: (13) Sleep apnea: (14) Malnutrition of moderate degree: -digital marketing officer consult (15) Sepsis: Plan I spent a total of 80 minutes in direct patient care, including [id number] time with the patient and/or family, reviewing medical records, ordering and reviewing diagnostic tests, and coordinating care with other healthcare providers. This time includes: history taking, physical examination, medical decision making, counseling, ECG interpretation, imaging interpretation, lab interpretation, orders, and education, excluding time spent in the performance of separately billed services. 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 Horowitz,, malnutrition of moderate degree, hypertension, type 2 diabetes, hypothyroidism, dyslipidemia, mood disorder, tobacco use and other medical problems listed below who was sent in from hematology oncology clinic due to abdominal pain, diarrhea and electrolyte abnormalities for further evaluation and treatment. Patient follows with Dr. Horowitz and is currently undergoing chemotherapy with Fluorouracil, leucovorin, and oxaliplatin. Has had nausea and vomiting during chemo treatment. Also has history of gallbladder removal and large intestine surgery and has diarrhea approximately 5 times a day. In the ED, noted to have colitis and gastritis, neutropenia, Mg of 0.9, K of 2.8, Na of 130, admitted to medicine for further workup. Patient seen and examined at bedside. Daughter present as well. Patient states she has been not feeling well the past few days. Has been having some nausea, vomiting, dizziness, diarrhea, and fever. She states she is very stubborn but feels that she is sicker than normal. Denies SOB or chest pain. States her last treatment was over a week ago. Does all ADLs at home and states she is doing well. Very surprised at her lab abnormalities. States she drinks a lot of water. Patient is ongoing smoker. Very long discussion at bedside regarding patients malignancy, prognosis, and current condition. Daughter and patient express confusion/frustration about the patients malignancy, prognosis, and treatment options. There is some confusion about whether this treatment is for curative intent or palliative intent, what the current state of the malignancy is, and whether she can continue with this regiment. Answered all questions to best of my ability. Updated Medication List Medication Instructions Recorded Confirmed Type clindamycin phosphate 1 % topical 1 applic topical DIRECTED PRN 03/12/25 08/13/25 History gel NEEDED duloxetine 60 mg capsule,delayed 60 mg PO QAM 03/12/25 08/13/25 History release gabapentin 100 mg capsule 200 mg PO BID 03/12/25 08/13/25 History linagliptin 5 mg tablet (Tradjenta) 5 mg PO QAM 03/12/25 08/13/25 History losartan 100 mg tablet 100 mg PO QAM 03/12/25 08/13/25 History lurasidone 40 mg tablet (Latuda) 40 mg PO QDD 03/12/25 08/13/25 History pioglitazone 30 mg tablet (Actos) 30 mg PO QAM 03/12/25 08/13/25 History ondansetron 4 mg disintegrating 4 mg PO BID PRN nausea and 03/19/25 08/13/25 Rx tablet vomiting #20 tabs acetaminophen 500 mg tablet 500 mg PO Q6H PRN Pain 03/28/25 08/13/25 History fluticasone propionate 50 2 spray intranasal BID PRN 03/28/25 08/13/25 History mcg/actuation nasal allergies spray,suspension pantoprazole 40 mg tablet,delayed 40 mg PO QAM 03/28/25 08/13/25 History release metformin 500 mg tablet 500 mg PO BID 05/15/25 08/13/25 History tizanidine 2 mg tablet 2 mg PO Q8H PRN Spasms 05/15/25 08/13/25 History Magic Swizzle 15 ml mucous membrane TID PRN 08/13/25 08/13/25 History NEEDED PER PT atorvastatin 20 mg tablet 20 mg PO DAILY 08/13/25 08/13/25 History buspirone 30 mg tablet 30 mg PO BID 08/13/25 08/13/25 History fluconazole 100 mg tablet 100 mg PO DAILY 08/13/25 08/13/25 History fluorouracil 5 gram/100 mL 5 g IV .[id number] 08/13/25 08/13/25 History intravenous solution lidocaine-prilocaine 2.5 %-2.5 % 1 applic topical DIRECTED PRN 08/13/25 08/13/25 History topical cream PORT ACCESS [id number] 8 mg-folic 400 1 tab PO DAILY 08/13/25 08/13/25 History mcg-K 50 mcg-lutein 300 mcg tablet (Centrum Silver Women) nystatin-triamcinolone 100,000 1 applic topical BID PRN NEEDED 08/13/25 08/13/25 History unit/g-0.1 % topical cream omeprazole 20 mg capsule,delayed 20 mg PO BID 08/13/25 08/13/25 History release ondansetron HCl 8 mg tablet 8 mg PO Q8H PRN NAUSEA/VOMITING 08/13/25 08/13/25 History loperamide 2 mg capsule (Imodium 2 mg PO Q6H PRN loose stool #20 08/15/25 Rx A-D) caps magnesium oxide 400 mg PO BID 15 days #30 tabs 08/15/25 Rx potassium chloride 20 mEq 20 meq PO BID 15 days #30 tabs 08/15/25 Rx tablet,extended release(part/cryst) Hospital Stay Data Consultations 08/13/25 18:01 ED Decision to Admit Stat Diagnostic Imagining Performed 08/13/25 15:53 CT abd pelvis IV con only Stat Pending Results Patient Have Any Pending Studies at Discharge: Yes Discharge Instructions Given to Patient (Per Discharging Provider) PLEASE REFER TO YOUR NEW MEDICATION LIST AND FOLLOW INSTRUCTIONS CAREFULLY. YOUR NEW MEDICATIONS INCLUDE: Imodium- as needed for diarrhea Potassium and Magnesium supplement Drink plenty of fluids. PLEASE CALL YOUR PRIMARY CARE PHYSICIAN OR RETURN TO THE ER IF WITH WORSENING OF SYMPTOMS, INCLUDING persistent diarrhea, blood in your stools, fever/chills, weakness, dizziness, etc FOLLOW UP WITH PRIMARY CARE PHYSICIAN OUTLINED ABOVE.
== END 2025-08-15 13:00 | disposition home or self-care (01) | DRG 872 ==
LOC: ED 15:25 → SUATTDRO 18:36 → 2S 18:36